=== PATIENT | female | born 1940 | race Two or more races ===

== ENCOUNTER 2025-07-14 10:33 | Inpatient (IN) | payer OTHER ==
[~2025-07-14] VITALS: Ht 162.6 cm; Wt 63.5 kg
[2025-07-14] MEDS ORDERED: 0.9 % SODIUM CHLORIDE 1,000 ML IV STA (10:59)
[2025-07-14] MEDS ORDERED: FAMOTIDINE/PF 20 MG/2 ML VIAL IV PUSH STA (10:59)
[2025-07-14] MEDS ORDERED: NITROGLYCERIN 0.4 MG TAB.SUBL SL STA (11:10)
[2025-07-14] MEDS ORDERED: FAMOTIDINE/PF 20 MG/2 ML VIAL ONE (11:11)
[2025-07-14 11:20] LABS: BASO % 0.8 % (0.1-1.2); EOS # 0.20 (0.04-0.54); EOS % 2.3 % (0.7-7.0); LYMPH # 1.22 (1.18-3.74); LYMPH % 14.2 % (19.3-53.1); MEAN PLATELET VOLUME 10.20 fl (9.4-12.4); MONO # 0.76 (0.24-0.82); MONO % 8.8 % (4.7-12.5); NEUT # 6.31 (1.56-6.13); NEUT % 73.2 % (34.0-71.1); RED CELL DISTRIBUTION WIDTH 15.1 % (11.6-14.4)
[2025-07-14 11:54] LABS: INR 1.0
[2025-07-14 12:19] LABS: ALT/SGPT 23.0 U/L (12-78); AST/SGOT 21.0 U/L (15-37); BILIRUBIN TOTAL 0.3 mg/dL (0.3-1.2); BUN CREA RATIO 17.0 (7.0-25.0); CREATININE SERUM 2.63 mg/dL (0.55-1.02); GFR 17.39; GLOBULINA 3.9 G/DL (2.4-3.5); GLUCOSE FASTING 182.0 mg/dL (65-100); OSMOLALITY SERUM 297.0 MOSM/KG (275-295)
[2025-07-14] MEDS ORDERED: CLOPIDOGREL BISULFATE 75 MG TABLET PO SCH (17:35)
[2025-07-14] MEDS ORDERED: ASPIRIN 81 MG TABLET.EC PO SCH (17:35)
[2025-07-14] MEDS ORDERED: PANTOPRAZOLE SODIUM 40 MG in 0.9 % SODIUM CHLORIDE 8 ML IV PUSH SCH (17:39)
[2025-07-14] MEDS ORDERED: DEXTROSE 50 % IN WATER 0.5 G/ML DISP.SYRIN IV PRN (17:45)
[2025-07-14] MEDS ORDERED: INSULIN LISPRO 1,000 UNIT/10 ML UNITS SUBCUTANEO PRN (17:45)
[2025-07-14] MEDS ORDERED: NITROGLYCERIN IN 5 % DEXTROSE 250 ML IV SCH (17:45)
[2025-07-14] MEDS ORDERED: 0.9 % SODIUM CHLORIDE 1,000 ML IV SCH (17:45)
[2025-07-14] MEDS ORDERED: ATORVASTATIN CALCIUM 40 MG TABLET PO SCH (17:49)
[2025-07-14] MEDS ORDERED: NITROGLYCERIN IN 5 % DEXTROSE 50 MG/250 ML BOTTLE IV ONE (18:17)
[2025-07-14 19:28] LABS: CHOL HDL RATIO 4.6 (0-5.0); CKMB 1.5 NG/ML (0.5-3.6); HDL 40.0 mg/dl (40-60); LDL 113.0 mg/dl (0-130); VLDL 30.0 (0-39)
[2025-07-14 21:43] LABS: RH POSITIVE
[2025-07-14 22:29] LABS: ABG PH 7.390 (7.35-7.45); ABG PO2 94.7 mmHg (80-100); BICARBONATE 16.8 mmol/l (23-25)
[2025-07-14 22:30] LABS: o2 21 %
[2025-07-14 23:15] LABS: URINE APPEARANCE Clear; URINE BILIRRUBIN Negative (NEGATIVE); URINE BLOOD Negative; URINE COLOR Yellow; URINE KETONE Negative (NEGATIVE); URINE LEUKOCYTE Negative; URINE NITRATE Negative; URINE UROBILINOGEN 0.2 E.U./dl
[2025-07-14 23:18] LABS: URINE BACTERIA 15.6 uL (0.0-1933); URINE EPITHELIAL CELLS 4.9 uL (0.0-38.8); URINE RBC 5.1 uL (0.0-20.8); URINE WBC 12.4 uL (0.0-23.2)
[2025-07-14 23:20] LABS: URINE CAST 1.02 uL (0.0-1.40); URINE GLUCOSE 500 MG/DL (NEGATIVE); URINE PROTEIN 300 (NEGATIVE)
[2025-07-15 03:09] VITALS: BP 101/60; O2SAT 97
[2025-07-15] MEDS ORDERED: MEROPENEM 500 MG/VIAL VIAL IV SCH (05:00)
[2025-07-15 09:08] VITALS: BP 102/63; O2SAT 98
[2025-07-15] MEDS ORDERED: ENOXAPARIN SODIUM 60 MG/0.6 ML SYRINGE SUBCUTANEO STA (15:07)
[2025-07-15] MEDS ORDERED: NOREPINEPHRINE BITARTRATE 8 MG in DEXTROSE 5 % IN WATER 250 ML IV SCH (15:15)
[2025-07-15] MEDS ORDERED: MEROPENEM 500 MG/VIAL VIAL IV STA (15:41)
[2025-07-15 16:58] VITALS: O2SAT 0
[2025-07-15 17:48] LABS: BASO % 0.3 % (0.1-1.2); EOS # 0.05 (0.04-0.54); EOS % 0.4 % (0.7-7.0); LYMPH # 3.05 (1.18-3.74); LYMPH % 25.6 % (19.3-53.1); MEAN PLATELET VOLUME 10.90 fl (9.4-12.4); MONO # 0.58 (0.24-0.82); MONO % 4.9 % (4.7-12.5); NEUT # 7.74 (1.56-6.13); NEUT % 65.0 % (34.0-71.1); RED CELL DISTRIBUTION WIDTH 15.1 % (11.6-14.4)
[2025-07-15 18:32] LABS: ALT/SGPT 27.0 U/L (12-78); AST/SGOT 32.0 U/L (15-37); BILIRUBIN TOTAL 0.32 mg/dL (0.3-1.2); BUN CREA RATIO 14.0 (7.0-25.0); CREATININE SERUM 3.13 mg/dL (0.55-1.02); FE 55.0 ug/dl (50-170); GFR 14.23; GLOBULINA 4.0 G/DL (2.4-3.5)
[2025-07-15 18:33] LABS: OSMOLALITY SERUM 311.0 MOSM/KG (275-295)
[2025-07-15 18:55] LABS: GLUCOSE FASTING 290.0 mg/dL (65-100)
[2025-07-15 19:55] LABS: BAND MAN 3.0 %; EOSINOPHIL MAN 1.0 %; LYMPHOCYTE MAN 26.0 %; METAMYELOCYTE 1.0 %; MONOCYTE MAN 6.0 %
[2025-07-15 19:56] LABS: NEUTROPHILS MAN 62.0 %
[2025-07-15 20:10] LABS: ERYTHROCYTE SEDIMENTATION RATE 113 mm/hr (0-30)
[2025-07-16] MEDS ORDERED: ENOXAPARIN SODIUM 60 MG/0.6 ML SYRINGE SUBCUTANEO SCH (09:00)
== END 2025-07-15 18:38 | disposition expired | DRG 682 ==
LOC: MEDI → ER 10:33 → MEDI 17:45
PROVIDERS: General Practice; ADMIT Specialist; ATTEND Specialist
PROC: 4A033R1 Measurement of Arterial Saturation, Peripheral, Percutaneous Approach (ICD-10-PCS; principal; 2025-07-14)
PROC: 4A12X4Z Monitoring of Cardiac Electrical Activity, External Approach (ICD-10-PCS; 2025-07-14)
PROC: B246ZZZ Ultrasonography of Right and Left Heart (ICD-10-PCS; 2025-07-14)
PROC: 30233N1 Transfusion of Nonautologous Red Blood Cells into Peripheral Vein, Percutaneous Approach (ICD-10-PCS; 2025-07-15)
PROC: 0BH17EZ Insertion of Endotracheal Airway into Trachea, Via Natural or Artificial Opening (ICD-10-PCS; 2025-07-15)
PROC: 5A1935Z Respiratory Ventilation, Less than 24 Consecutive Hours (ICD-10-PCS; 2025-07-15)
DX: N17.9 Acute kidney failure, unspecified (principal); I21.3 ST elevation (STEMI) myocardial infarction of unspecified site; J96.00 Acute respiratory failure, unspecified whether with hypoxia or hypercapnia; J81.1 Chronic pulmonary edema; D64.9 Anemia, unspecified; I46.9 Cardiac arrest, cause unspecified; E87.5 Hyperkalemia